=== PATIENT | female | born 1960 | race Caucasian/White ===

== ENCOUNTER 2017-07-20 07:10 | Day surgery (SDC) | payer BC ==
[~2017-07-20 07:10] MED LIST: Lactated Ringers 1,000 ML IV SCH; Lidocaine 1%/Sod Bicarbonate in NS 8.4% 1 ML Syringe IDERM PRN; Sodium Chloride 0.9% 10 ML Syringe FLUSH PRN
--- NOTE | 2017-07-20 08:06 | PCM.PREANE ---
Preanesthetic Assessment - Procedure Proposed Procedure: Diagnostic EGD/ colonoscopy - Anesthesia/Transfusion/Family Hx Anesthesia History: Prior Anesthesia Without Reaction Type of Anesthesia Reaction: Excessive Nausea/Vomiting Family History of Anesthesia Reaction: No Transfusion History: Prior Transfusion Without Reaction Additional History: hx gastric bypass, hiatal hernia - Review of Systems General: No Symptoms Pulmonary: No Symptoms Cardiovascular: No Symptoms Gastrointestinal: Diarrhea, Difficulty Swallowing, Other (GERD ) Neurological: No Symptoms Other: Reports: Depression, Anxiety - Physical Assessment NPO Status Date: 07/19/17 NPO Status Time: 22:30 O2 Sat by Pulse Oximetry: 98 Respiratory Rate: 18 Vital Signs: Last Vital Signs Temp 36.5 C 07/20/17 07:20 Pulse 77 07/20/17 07:20 Resp 18 07/20/17 07:20 BP 116/78 07/20/17 07:20 Pulse Ox 98 07/20/17 07:20 Height: 1.57 m Weight: 87.997 kg ASA Class: 2 Mental Status: Alert & Oriented x3 Airway Class: Mallampati = 2 Dentition: Reports: Dentures Thyro-Mental Finger Breadths: 3 Mouth Opening Finger Breadths: 3 ROM/Head Extension: Full Lungs: Clear to Auscultation, Normal Respiratory Effort Cardiovascular: Regular Rate, Regular Rhythm - Allergies Allergies/Adverse Reactions: Allergies Allergy/AdvReac Type Severity Reaction Status Date / Time Penicillins Allergy Cannot Verified 07/19/17 13:19 Remember - Blood Blood Available: No Product(s) Available: None - Anesthesia Plan Pre-Op Medication Ordered: None - Acknowledgements Anesthesia Type Planned: MAC Pt an Appropriate Candidate for the Planned Anesthesia: Yes Alternatives and Risks of Anesthesia Discussed w Pt/Guardian: Yes Pt/Guardian Understands and Agrees with Anesthesia Plan: Yes PreAnesthesia Questionnaire HEENT History: Reports: Impaired Vision, Other (See Below) Other HEENT History: has dentures, glasses Cardiovascular History: Reports: None Respiratory History: Reports: None Gastrointestinal History: Reports: Other (See Below) Other Gastrointestinal History: abdominal wall hernia Genitourinary History: Reports: Other (See Below) Other Genitourinary History: overactive bladder EXTERNAL RELATIONS DIRECTOR History: Reports: , Other (See Below) Other OB/BYN History: breast nodule, vaginal atrophy Neurological History: Reports: Vertigo, Other (See Below) Other Neuro History: dizziness Psychiatric History: Reports: Anxiety, Depression, Other (See Below) Other Psychiatric History: fatigue Endocrine/Metabolic History: Reports: Obesity/BMI 30+, Osteopenia Hematologic History: Reports: Anemia Immunologic History: Reports: None Oncologic (Cancer) History: Reports: None Dermatologic History: Reports: None - Past Surgical History Head Surgeries/Procedures: Reports: None HEENT Surgical History: Reports: Other (See Below) Other HEENT Surgeries/Procedures: jaw surgery Cardiovascular Surgical History: Reports: None Respiratory Surgical History: Reports: None GI Surgical History: Reports: Bariatric Procedure, Cholecystectomy Female Surgical History: Reports: Breast Reduction, Section, Hysterectomy, Tubal Ligation Male Surgical History: Reports: None Endocrine Surgical History: Reports: None Neurological Surgical History: Reports: None Musculoskeletal Surgical History: Reports: Other (See Below) Other Musculoskeletal Surgeries/Procedures:: femur fracture with surgical repair with hardware Oncologic Surgical History: Reports: None Dermatological Surgical History: Reports: None - SUBSTANCE USE Smoking Status *Q: Former Smoker Days Per Week of Alcohol Use: 0 Recreational Drug Use History: No - HOME MEDS Home Medications: Home Meds Calcium Carbonate/Vitamin D3 [Calcium 600 + Vit D 200] 2 tab PO DAILY 07/19/17 [ History] Cholecalciferol (Vitamin D3) [Vitamin D3] 1,000 units PO DAILY 07/19/17 [History ] Citalopram Hydrobromide [Celexa] 40 mg PO DAILY 07/19/17 [History] Coconut Oil 1,000 mg PO DAILY 07/19/17 [History] Cyanocobalamin (Vitamin B12) [Vitamin B12] 100 mcg PO DAILY 07/19/17 [History] Ferrous Sulfate [Iron] 325 mg PO TID 07/19/17 [History] L. Rhamnosus/L. Reuteri [Rephresh Pro-B] 1 cap PO DAILY 07/19/17 [History] Lactobacillus Combo No.10 [Probiotic] 1 cap PO DAILY 07/19/17 [History] MV,Ca,Min/FA/Herbal No.157 [Estroven Max Strength Caplet] 400 mcg PO DAILY 07/19 [History] Multivits,Ca,Minerals/Iron/FA [Women's Daily Formula Caplet] 1 tab PO DAILY 08/31 [History] Tolterodine Tartrate [Tolterodine Tartrate ER] 4 mg PO DAILY 07/19/17 [History] - CURRENT (IN HOUSE) MEDS Current Meds: Current Medications Lactated Ringer's (Ringers, Lactated) 1,000 mls @ 125 mls/hr IV ASDIRECTED JULIEN Stop: 07/20/17 23:00 Last Admin: 07/20/17 07:20 Dose: 125 mls/hr Lidocaine/Sodium Bicarbonate (Buffered Lidocaine 1% In Ns 8.4%) 0.25 ml IDERM ONETIME PRN PRN Reason: Prior to IV Start Stop: 07/20/17 18:00 Sodium Chloride (Saline Flush) 10 ml FLUSH ASDIRECTED PRN PRN Reason: Keep Vein Open Stop: 07/20/17 18:00
[2017-07-20] MEDS ORDERED: fentaNYL 100 MCG/2 ML SDV ONE ×2 (08:08→08:28)
[2017-07-20] MEDS ORDERED: Lidocaine 1% 0 ML ONE (08:09)
[2017-07-20] MEDS ORDERED: Ondansetron 4 MG/2 ML SDV ONE (08:11)
[2017-07-20] MEDS ORDERED: Propofol 200 MG/20 ML SDV ONE ×2 (08:15→08:28)
[2017-07-20] MEDS ORDERED: Lidocaine 1% 4 ML ONE (08:29)
--- NOTE | 2017-07-20 09:24 | PCM.OPNOTE ---
- General Post-Op/Procedure Note Date of Surgery/Procedure: 07/20/17 Operative Procedure(s): 1. Esophagogastroduodenoscopy with proximal and GE junction cold forceps biopsies. 2. Diagnostic colonoscopy with ileal transverse colon and rectal biopsies Findings: 1. Status post gastric bypass with a small pouch stomach. The esophagus was dilated endoscopically consistent with achalasia. There were no strictures inflammatory changes or mass lesion seen within the esophagus. There was no retained food within the body of the esophagus. 2. External and internal hemorrhoids. A spastic colon with large pancolonic diverticula. No mass lesions or inflammatory changes seen in the colon and rectum. Pre Op Diagnosis: 1. Dysphagia. 2. Change in bowel habits Post-Op Diagnosis: 1. Endoscopic achalasia. 2. Internal and external in consultative hemorrhoids. 3. Pancolonic diverticulosis. 4. Spastic colon Anesthesia Technique: MAC, Moderate Sedation Primary Surgeon: Ag Prater Pathology: 1. Proximal third and GE junction biopsies. 2. Ileal biopsy transverse colon biopsy and random rectal biopsy EBL in mLs: 0 Complications: None Condition: Good Free Text/Narrative:: After adequate IV sedation and analgesia was obtained with monitoring the patient was placed on her left side. Through a bite-block lubricated upper endoscope was easily inserted in the esophagus and advanced through a large caliber esophagus and through the GE junction into the gastric bypass pouch. The duodenum was unremarkable. There were no strictures or marginal ulcers. There was no endoscopic gastritis. There was no fernando hiatal hernia. There was no retained food within the stomach or the esophagus. The scope was withdrawn to the GE junction which was slightly tortuous. There are no strictures or endoscopic inflammatory changes in this area. Biopsies were taken for histologic evaluation. The body of the esophagus was capacious suspicious for achalasia but was grossly normal. In the proximal third I took 2 biopsies for histologic review. Air was removed as I finished the procedure which she tolerated well. Vending Attendant photographs were taken for the patient for the medical record. Perianal inspection revealed the external hemorrhoids. On digital rectal examination I could palpate the internal hemorrhoids. The sphincter tone was grossly normal. A lubricated colonoscope was inserted into the rectum then advanced through a very tortuous sigmoid which contained many uncomplicated diverticuli. After the sigmoid there were scattered diverticuli throughout the remaining aspects of the colon some of them were quite large. With insufflation the colon was resistant to dilatation because of circular muscle spasm mostly within the sigmoid. I ultimately reached the cecum. The bowel preparation was good. I took a random biopsy of the ileum for histologic review although this structure was normal. The cecum and right colon were remarkable for a few scattered diverticuli but no inflammatory changes. The transverse colon was without inflammatory changes as well and was remarkable for the previously mentioned diverticuli I took a biopsy for review. The descending had a few diverticuli but no mass lesions or inflammatory changes. The sigmoid likewise was spastic with no inflammatory changes but had the largest diverticuli. Within the rectum I took a random rectal biopsy. In the retroflexed view there were internal hemorrhoids were visualized. Air was removed as I finished the procedure. Photographs were taken of the colon and rectum for the record and the patient.
--- NOTE | 2017-07-20 09:26 | PCM48HPAN ---
Post Anesthesia Note - EVALUATION WITHIN 48HRS OF ANESTHETIC Vital Signs in Normal Range: Yes Patient Participated in Evaluation: Yes Respiratory Function Stable: Yes Airway Patent: Yes Cardiovascular Function Stable: Yes Hydration Status Stable: Yes Pain Control Satisfactory: Yes Nausea and Vomiting Control Satisfactory: Yes Mental Status Recovered: Yes
[2017-07-20 09:55] VITALS: BP 116/68
== END 2017-07-20 09:50 | disposition home or self-care (01) ==
LOC: JD.SDS 07:10
PROVIDERS: ATTEND Surgery
DX: K57.30 Diverticulosis of large intestine without perforation or abscess without bleeding (principal); K58.9 Irritable bowel syndrome, unspecified; K64.4 Residual hemorrhoidal skin tags; K64.8 Other hemorrhoids; K22.0 Achalasia of cardia; K20.9 Esophagitis, unspecified; Z88.0 Allergy status to penicillin; F41.9 Anxiety disorder, unspecified; F32.9 Major depressive disorder, single episode, unspecified; E66.9 Obesity, unspecified; Z90.49 Acquired absence of other specified parts of digestive tract; Z90.710 Acquired absence of both cervix and uterus; Z87.891 Personal history of nicotine dependence; Z79.899 Other long term (current) drug therapy
CPT/HCPCS: 43239; 45380; J3010; J7120; 88305; J2405; J2704

== ENCOUNTER 2020-01-09 16:55 | Emergency (ER) | payer BC | END 2020-01-09 18:02 | LOC: JD.ED 16:55 | DX: Z53.21 Procedure and treatment not carried out due to patient leaving prior to being seen by health care provider (principal) ==